=== PATIENT | male | born 1970 | race Hispanic/Latino ===

== ENCOUNTER 2021-03-25 18:02 | Emergency (ER) | payer BC ==
[2021-03-25] MEDS ORDERED: Tranexamic Acid 1,000 MG/10 ML VIAL ONE (19:26)
== END 2021-03-25 20:35 | disposition home or self-care (01) ==
LOC: CSHERS 18:02
DX: R04.0 Epistaxis (principal); E11.9 Type 2 diabetes mellitus without complications
CPT/HCPCS: 99283